=== PATIENT | female | born 1990 | race Hispanic/Latino ===

== ENCOUNTER 2017-03-24 17:02 | Inpatient (IN) ==
[2017-03-24 17:24] LABS: URINE SOURCE VOIDED
[2017-03-24] MEDS ORDERED: LR 1,000 ML IV SCH (17:25)
[2017-03-24] MEDS ORDERED: PEPCID PO PRN (17:25)
[2017-03-24] MEDS ORDERED: KEFZOL 1 GM/D5W 1 GM/50 ML IVPB IV PRN (17:25)
[2017-03-24] MEDS ORDERED: PEPCID IV PRN (17:25)
[2017-03-24] MEDS ORDERED: REGLAN PO ONE (17:25)
[2017-03-24] MEDS ORDERED: STADOL IV PRN (17:25)
[2017-03-24] MEDS ORDERED: PITOCIN 30 UNITS/LR 30 UNITS/500 ML IV.SOLN IV SCH (17:25)
[2017-03-24] MEDS ORDERED: ZOFRAN IV PRN (17:25)
[2017-03-24] MEDS ORDERED: TYLENOL PO PRN (17:25)
[2017-03-24] MEDS ORDERED: PEPCID PO ONE (17:25)
[2017-03-24] MEDS ORDERED: SODIUM CHLORIDE 0.9% INJ SCH (17:30)
[2017-03-24 17:34] LABS: MANUAL DIFF NEEDED? NO
[2017-03-24 17:37] LABS: BASO% 0.2 % (0.0-0.8); EOS# 0.04 X1000 (0.0-0.7); EOS% 0.3 % (0.0-10.0); HEMOGLOBIN 11.4 g/dL (12.0-16.0); IMM GRAN# 0.08 X1000 (0.0-0.04); IMM GRAN% 0.6 % (0.0-0.5); LYMPH# 3.44 X1000 (1.2-3.4); LYMPH% 27.7 % (20.5-51.1); MCHC 34.5 g/dL (33-37); MCV 86.8 FL (81-99); MONO# 1.06 X1000 (0.11-0.59); MONO% 8.5 % (1.7-9.3); MPV 12.7 FL (7.4-10.4); NEUT% 62.7 % (42.2-75.2); PLT 222 X1000 (130-400)
[2017-03-24 17:50] LABS: BILIRUBIN URINE NEGATIVE (NEGATIVE); BLOOD URINE NEGATIVE (NEGATIVE); CLARITY CLEAR (CLEAR); COLOR YELLOW; GLUCOSE URINE NEGATIVE (NEGATIVE); LEUKOCYTES URINE 1+ (NEGATIVE); NITRITE URINE POSITIVE (NEGATIVE); PROTEIN URINE TRACE mg/dL (NEGATIVE); UROBILINOGEN URINE NORMAL
[2017-03-24] MEDS ORDERED: NORCO-10 PO PRN (18:05)
[2017-03-24] MEDS ORDERED: M-M-R II VACCINE SUBQ ONE (18:05)
[2017-03-24] MEDS ORDERED: PITOCIN 20 UNITS/LR 20 UNITS/1,000 ML IV.SOLN IV SCH (18:05)
[2017-03-24] MEDS ORDERED: BOOSTRIX VACCINE IM ONE (18:05)
[2017-03-24] MEDS ORDERED: CYTOTEC PO PRN (18:05)
[2017-03-24] MEDS ORDERED: XYLOCAINE-MPF 1% INJ PRN (18:05)
[2017-03-24] MEDS ORDERED: PITOCIN 30 UNITS/LR 30 UNITS/500 ML IV.SOLN IV ONE (18:05)
[2017-03-24] MEDS ORDERED: MINERAL OIL PO PRN (18:05)
[2017-03-24] MEDS ORDERED: BENADRYL IV PRN (18:05)
[2017-03-24] MEDS ORDERED: HYDROXYZINE PO PRN (18:05)
[2017-03-24] MEDS ORDERED: BENADRYL PO PRN (18:05)
[2017-03-24] MEDS ORDERED: AMBIEN PO PRN (18:05)
[2017-03-24] MEDS ORDERED: HYDROXYZINE IM PRN (18:05)
[2017-03-24] MEDS ORDERED: NORCO-5 PO PRN (18:05)
[2017-03-24] MEDS ORDERED: PERI MEDS (DERMOPLAST/NUPERCAINAL/TUCKS) MISC PRN (18:05)
[2017-03-24] MEDS ORDERED: PITOCIN IM PRN (18:05)
--- NOTE | 2017-03-24 18:39 | OPERATIVE NOTE ---
PROCEDURE DATE: 03/24/2017 DESCRIPTION OF DELIVERY: Patient underwent sterile controlled spontaneous vaginal delivery of a viable male weighing 8 pounds 5 ounces with Apgars of 8 and 9. Nuchal x3 reduced at perineum. No dystocia. Cord doubly clamped and cut. Infant handed off to waiting pediatric staff. Placenta delivered spontaneously and intact. Uterus firm with Pitocin and massage. Uterus, cervix and vagina explored . Bilateral vaginal lacerations hemostatic without repair. No complications. ESTIMATED BLOOD LOSS: 200 mL. cc: Alyssa Osborn MD
[2017-03-24] MEDS: PERICOLACE PO SCH (23:36)
[2017-03-25] MEDS: MOTRIN PO PRN (05:18)
[2017-03-25 05:54] LABS: HEMATOCRIT 30.1 % (37.0-47.0); MCH 29.1 PG (27-31); MCHC 33.2 g/dL (33-37); MCV 87.5 FL (81-99); MPV 12.6 FL (7.4-10.4); RBC 3.44 XMIL (4.2-5.4)
[2017-03-26] MEDS: PERICOLACE PO SCH (00:26)
[2017-03-26] MEDS: MOTRIN PO PRN (00:26)
[2017-03-26 14:18] VITALS: BP 108/64
--- NOTE | 2017-03-27 04:26 | DISCHARGE SUMMARY ---
ADMISSION DATE: 03/24/2017 DISCHARGE DATE: 03/26/2017 ADMISSION DIAGNOSES: Apparently, term . Active labor. No care. DISCHARGE DIAGNOSES: Apparently, term . Active labor. No care. CONDITION: Stable. DIET: As tolerated. ACTIVITY: Routine . MEDICATIONS: Motrin 800. She is to continue her vitamins with iron. FOLLOWUP: She is to follow up in [address] Moran. HOSPITAL COURSE: Please refer to Ms. Grimes's delivery note and notes after delivery. She presented and had a vaginal delivery. She has done well afterwards. Currently, is communicating no complaints. PHYSICAL EXAMINATION: Vital Signs: Stable. Neck: Supple. Lungs: Clear. Heart: Regular sinus rhythm. Abdomen: Benign. Extremities: No cyanosis, clubbing, or edema. LABORATORY DATA: Hemoglobin from yesterday 10.0. PLAN: We will discharge with the above instructions. cc: MD Alyssa Gilliam MD
== END 2017-03-26 15:45 | disposition home or self-care (01) ==
LOC: P.OPLD 17:02 → P.LD 17:09
PROVIDERS: ADMIT Obstetrics & Gynecology; ATTEND Obstetrics & Gynecology